=== PATIENT | female | born 1955 | race Caucasian/White ===

== ENCOUNTER 2024-08-30 04:14 | Inpatient (IN) | payer MEDICARE, BC ==
[~2024-08-30] VITALS: Ht 154.9 cm; Wt 60.8 kg
[2024-08-30 04:40] VITALS: BP 144/84; TEMP 98; O2SAT 98
[2024-08-30] MEDS ORDERED: MAGNESIUM HYDROXIDE 30 ML UDC PO PRN (05:00)
[2024-08-30] MEDS ORDERED: ZOLPIDEM TARTRATE 5 MG TABLET PO PRN (05:00)
[2024-08-30] MEDS ORDERED: LORAZEPAM 0.5 MG TABLET PO PRN (05:00)
[2024-08-30] MEDS ORDERED: ACETAMINOPHEN 325 MG TABLET PO PRN (05:00)
[2024-08-30] MEDS ORDERED: MAG HYDROX/AL HYDROX/SIMETH 30 ML UDC PO PRN (05:00)
[2024-08-30] MEDS: BLOOD SUGAR DIAGNOSTIC 1 EACH STRIP IN ONE (05:34)
[2024-08-30 07:57] LABS: ALBUMIN 3.8 g/dL (3.4-5.0); BILIRUBIN,TOTAL 0.5 mg/dL (0.2-1.0); CALCIUM, SERUM 9.3 mg/dL (8.5-10.1); POTASSIUM 4.6 mmol/L (3.5-5.1); TOTAL PROTEIN, SERUM 7.1 g/dL (6.4-8.2)
[2024-08-30 08:00] VITALS: BP 157/76; TEMP 97.9; O2SAT 99
[2024-08-30] MEDS ORDERED: HYDR-4076 PO (09:03)
[2024-08-30] MEDS ORDERED: DILT-32 PO (09:03)
[2024-08-30] MEDS ORDERED: FERR325T24 PO (09:03)
[2024-08-30] MEDS ORDERED: TEMA15CA PO (09:03)
[2024-08-30] MEDS ORDERED: TIMO5DRO35 EACHEYE (09:03)
[2024-08-30] MEDS ORDERED: LATA7.5D EACHEYE (09:03)
[2024-08-30] MEDS ORDERED: CLON0.5T4 PO (09:03)
[2024-08-30] MEDS ORDERED: BRIM5DRO11 EACHEYE (09:03)
[2024-08-30] MEDS ORDERED: ATOR20TA PO (09:03)
[2024-08-30] MEDS ORDERED: ASPI-1420 PO (09:03)
[2024-08-30] MEDS ORDERED: INSU100I24 SQ (09:03)
[2024-08-30] MEDS ORDERED: FLUO20CA42 PO (09:03)
[2024-08-30] MEDS: FLUOXETINE HCL 20 MG CAPSULE PO SCH (11:48)
[2024-08-30] MEDS: Fluoxetine 10 mg capsule PO SCH (11:55)
[2024-08-30] MEDS ORDERED: DEXTROSE 50%-WATER 50 ML DISP.SYRIN IV PRN (14:00)
[2024-08-30] MEDS: hydrALAZINE HCL 25 MG TABLET PO SCH (14:37)
[2024-08-30] MEDS: FERROUS SULFATE (325 MG) 325 MG/TAB TABLET PO SCH (14:37)
[2024-08-30] MEDS: DILTIAZEM HCL CD 120 MG PO SCH (14:37)
[2024-08-30] MEDS: ASPIRIN EC 81 MG TABLET.DR PO SCH (14:37)
[2024-08-30] MEDS: LORAZEPAM 0.5 MG TABLET PO PRN (15:35)
[2024-08-30 16:14] VITALS: BP 178/82; TEMP 97.9; O2SAT 99
[2024-08-30] MEDS ORDERED: TIMOLOL MALEATE/PF 0.25% 1 DROP DROPERETTE EACHEYE SCH (17:00)
[2024-08-30] MEDS: BLOOD SUGAR DIAGNOSTIC 1 EACH STRIP IN SCH (17:22)
[2024-08-30] MEDS: BRIMONIDINE TARTRATE OPHT SOLN 5 ML BOTTLE EACHEYE SCH (17:22)
[2024-08-30] MEDS: INSULIN REGULAR, HUMAN 100 UNIT/ML 3 ML VIAL SQ PRN (17:24)
[2024-08-30] MEDS ORDERED: hydrALAZINE HCL 25 MG TABLET PO PRN (17:30)
[2024-08-30] MEDS: TIMOLOL 0.5% SOLN OPHTH 5 ML BOTTLE EACHEYE SCH (17:56)
[2024-08-30] MEDS: CEPHALEXIN MONOHYDRATE 250 MG CAPSULE PO SCH (20:05)
[2024-08-30 20:30] VITALS: BP 90/90; TEMP 98.1; O2SAT 99
[2024-08-30 20:35] LABS: APPEARANCE,URINE CLEAR (CLEAR); BILIRUBIN,URINE NEGATIVE (NEGATIVE); BLOOD, URINE TRACE-INTA Ery/uL (NEGATIVE); COLOR,URINE YELLOW (YELLOW); KETONES,URINE TRACE mg/dL (NEGATIVE); LEUKOCYTE ESTERASE ,URINE 1+ (NEGATIVE); NITRITE, URINE NEGATIVE (NEGATIVE); PROTEIN,URINE 2+ mg/dl (NEGATIVE); UGLUCOSE TRACE mg/dL (NEGATIVE); UROBILINOGEN,URINE 0.2 EU/dL (0.2)
[2024-08-30 20:47] LABS: CREATININE, URINE 72.6 MG/DL (30.0-125.0); URINE TOTAL PROTEIN 94.5 mg/dL (0-11.9)
[2024-08-30 20:53] LABS: RBC,URINE 0-2 /HPF (0-2)
[2024-08-30 20:54] LABS: ADD URINE CULTURE YES; BACTERIA,URINE 2+ /HPF (None Seen)
[2024-08-30] MEDS: ATORVASTATIN 10 MG TABLET PO SCH (21:08)
[2024-08-30] MEDS: TRAZODONE 50 MG TABLET PO SCH (21:08)
[2024-08-30] MEDS: LATANOPROST EYE DROP 0.005% 2.5 ML BOTTLE EACHEYE SCH (21:13)
[2024-08-30 21:22] LABS: EOSINOPHIL,URINE None Seen
[2024-08-30] MEDS: INSULIN GLARGINE, 100 UNIT/ML CARTRIDGE SQ SCH (21:23)
[2024-08-30] MEDS ORDERED: TEMAZEPAM 15 MG CAPSULE PO PRN (22:00)
[2024-08-31 06:50] LABS: BASOPHILS % (AUTO) 0.5 % (0.0-2.0); EOSINOPHILS # (AUTO) 0.1 K/uL (0.0-0.7); EOSINOPHILS % (AUTO) 1.9 % (0.0-6.0); HEMATOCRIT 31 % (33-45); HEMOGLOBIN 10.5 g/dL (11.5-14.8); LYMPHOCYTES # (AUTO) 0.9 K/uL (0.8-4.8); LYMPHOCYTES % (AUTO) 18.6 % (20.0-44.0); MEAN CORPUSCULAR HEMOGLOBIN 30 PG (26.0-33.0); MEAN CORPUSCULAR HGB CONC 34 g/dl (31.0-36.0); MEAN CORPUSCULAR VOLUME 87 fL (82-100); MONOCYTES # (AUTO) 0.5 K/uL (0.1-1.30); MONOCYTES % (AUTO) 9.3 % (2.0-12.0); NEUTROPHILS # (AUTO) 3.4 K/uL (1.8-8.9); NEUTROPHILS % (AUTO) 69.7 % (43.0-81.0); PLATELET COUNT (AUTO) 191 K/uL (150-450); RED CELL DISTRIBUTION WIDTH 15.4 % (11.5-15.0); WHITE BLOOD COUNT (AUTO) 4.9 K/uL (4.3-11.0)
[2024-08-31 07:16] LABS: MAGNESIUM 2.2 mg/dL (1.8-2.4); PHOSPHORUS 3.3 mg/dL (2.5-4.9)
[2024-08-31 08:00] VITALS: BP 116/67; TEMP 98; O2SAT 100
[2024-08-31 16:00] VITALS: BP 110/60; TEMP 97.6; O2SAT 98
[2024-08-31 16:44] VITALS: BP 116/67
[2024-08-31] MEDS ORDERED: AMITRIPTYLINE HCL 25 MG TABLET PO SCH (22:00)
[2024-09-01 08:11] LABS: PTH, INTACT 42 pg/mL (15-65)
[2024-09-04 10:11] LABS: *SPE A/G RATIO 1.3 (0.7-1.7); *SPE ALBUMIN 3.4 g/dL (2.9-4.4); *SPE ALPHA-1-GLOBULIN 0.2 g/dL (0.0-0.4); *SPE ALPHA-2-GLOBULIN 0.6 g/dL (0.4-1.0); *SPE BETA GLOBULIN 0.9 g/dL (0.7-1.3); *SPE GLOBULIN, TOTAL 2.6 g/dL (2.2-3.9); *SPE M-SPIKE Not Observed g/dL (Not Observed); *SPEGAMMA GLOBULIN 0.8 g/dL (0.4-1.8)
== END 2024-08-31 20:28 | disposition left against medical advice (07) | DRG 885 ==
LOC: GPS 04:29
PROVIDERS: ADMIT Psychiatry & Neurology Psychiatry
DX: F33.2 Major depressive disorder, recurrent severe without psychotic features (principal); N18.4 Chronic kidney disease, stage 4 (severe); N17.9 Acute kidney failure, unspecified; N39.0 Urinary tract infection, site not specified; F29 Unspecified psychosis not due to a substance or known physiological condition; F41.9 Anxiety disorder, unspecified; E11.22 Type 2 diabetes mellitus with diabetic chronic kidney disease; I12.9 Hypertensive chronic kidney disease with stage 1 through stage 4 chronic kidney disease, or unspecified chronic kidney disease; E78.5 Hyperlipidemia, unspecified; H40.9 Unspecified glaucoma; G47.00 Insomnia, unspecified; M89.8X9 Other specified disorders of bone, unspecified site; Z79.84 Long term (current) use of oral hypoglycemic drugs; Z99.2 Dependence on renal dialysis
CPT/HCPCS: 36415; 76770-TC; 80048-TC; 80053-TC; 80061-TC; 81001; 82550-TC; 82570-TC; 82962-TC; 83735-TC; 83970; 84100-TC; 84155; 84165; 84300-TC; 85025-TC; 87081-TC; 87086-TC; 97112-TC; 97116-TC; 97530-TC; J1815